=== PATIENT | male | born 1965 | race Caucasian/White ===

== ENCOUNTER 2023-06-02 18:47 | Emergency (ER) | payer OTHER, SELFPAY ==
[2023-06-02] VITALS (32 sets, daily range): BP systolic 115–137; BP diastolic 60–87; PULSE 63–134; RESP 7–31; TEMP 36.4; O2SAT 97–100; BMI 42.6
--- NOTE | 2023-06-02 18:56 | ECG_ITS ---
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
--- NOTE | 2023-06-02 18:56 | XR_ITS ---
The [address] [address] Patient Name: CYN EVANS MRN: [id number] date: 1965 Sex: M Assigned Patient Location: ER Current Patient Location: ER Accession/Order Number: [id number] Exam Date: 06/02/2023 19:16 Report Date: 06/02/2023 19:37 At the request of: TWNA HUTTON Procedure: XR chest 2V EXAM: XR chest 2V HISTORY: syncope COMPARISON: None. TECHNIQUE: Upright PA and lateral chest x-ray FINDINGS: The heart is not enlarged and the vasculature is not distended. No acute infiltrate, effusion or pneumothorax is identified. Degenerative changes are seen in the spine. XR/XR chest 2V IMPRESSION: No acute infiltrate or evidence of cardiac decompensation. Direct comparison with a previous study would be helpful in determining the chronicity of these findings. Electronically authenticated by: KENNEY BALL Date: 06/02/2023 19:37
--- NOTE | 2023-06-02 19:48 | ED.SYNCOPE1 ---
HPI - Syncope General Chief Complaint: Syncope Stated Complaint: Syncope Time Seen by Provider: 06/02/23 18:55 Source: patient Mode of arrival: ambulance History of Present Illness HPI narrative: patient at work. not exerting himself. Became sweating and clammy followed by nausea. Sat down on the floor as he was light headed and passed out. No reported seizure activity . Denies any preceding chest pain or abdominal pain. States he felt well before onset of symptoms. History of HTN that is controlled. Mild left sided headache on and off. Ears feels plugged. He is hard of hearing. did not bring his hearing aids MD complaint: Reports loss of consciousness Related Data Allergies Allergy/AdvReac Type Severity Reaction Status Date / Time No Known Drug Allergies Allergy Verified 06/02/23 18:54 Review of Systems ROS Status of ROS 10 or more systems reviewed and unremarkable except as noted in history and below Exam Constitutional Vital Signs, click to edit/add: Last Vital Signs Temp 97.5 F L 06/02/23 18:55 Pulse 71 06/02/23 22:50 Resp 17 06/02/23 22:50 BP 132/78 06/02/23 22:31 Pulse Ox 98 06/02/23 22:50 O2 Del Method Room Air 06/02/23 18:55 Common normals: no apparent distress, oriented x3, no limitations, healthy appearing, alert and well nourished [facility] Common normals: normocephalic and head/scalp atraumatic Eye Common normals: PERRL, EOMs intact bilaterally and conjunctivae normal Respiratory Common normals: normal respiratory effort, no retractions, no use of accessory muscles and clear to auscultation bilaterally Cardio Common normals: regular rate, regular rhythm, S1 normal heart sound and S2 normal heart sound GI Common normals: Normal to inspection, nondistended, normoactive bowel sounds present, soft to palpation and non-tender Extremity Common normals: normal to inspection and full ROM Neuro Common normals: oriented x3, CN's II-XII intact bilaterally, moves all extremities and no focal motor deficits Psych Appearance: grossly normal Course Vital Signs Vital signs: Vital Signs Pulse Rate 114 H 06/02/23 18:51 Temperature 97.5 F L 06/02/23 18:55 Pulse Rate 71 06/02/23 22:50 Respiratory Rate 17 06/02/23 22:50 Blood Pressure 132/78 06/02/23 22:31 Pulse Oximetry 98 06/02/23 22:50 Oxygen Delivery Method Room Air 06/02/23 18:55 MDM - Syncope MDM Narrative Medical decision making narrative: patient clinically presents with vaso vagal syncope. Prior to passing out he was sweaty and nauseated. He then sat down passed out. workup in the department neg including serial troponin and neg. d-dimer. Patient discharged home asymptomatic to follow up with his doctor Lab Data Labs: Lab Results 06/02/23 06/02/23 Range/Units 20:06 22:18 WBC 15.3 H (4.0-11.0) 10^3/uL RBC 5.36 (4.70-6.10) 10^6/uL Hgb 15.6 (14.0-18.0) g/dL Hct 46.7 (42.0-54.0) % MCV 87.1 (80.0-94.0) fL MCH 29.1 (25.9-34.0) pg MCHC 33.4 (29.9-35.2) g/dL RDW 13.4 (11.0-15.0) % Plt Count 257 (150-450) 10^3/uL MPV 8.9 L (9.5-13.5) fL Neut % (Auto) 84.9 H (43.0-75.0) % Lymph % (Auto) 7.2 L (20.5-60.0) % [place] % (Auto) 6.1 (1.7-12.0) % Eos % (Auto) 0.8 L (0.9-7.0) % Baso % (Auto) 0.4 (0.2-2.0) % Neut # (Auto) 13.0 H (1.4-6.5) 10^3/uL Lymph # (Auto) 1.1 L (1.2-3.8) 10^3/uL [place] # (Auto) 0.9 H (0.3-0.8) 10^3/uL Eos # (Auto) 0.1 (0.0-0.7) 10^3/uL Baso # (Auto) 0.1 (0.0-0.1) 10^3/uL Abs Immat Gran (auto) 0.09 H (0.00-0.03) 10^3/uL Imm/Tot Granulo (auto) 0.6 H (0.0-0.5) % D-Dimer 0.46 (<=0.59) mg/L FEU Sodium 138 (136-145) mmol/L Potassium 3.0 L (3.5-5.1) mmol/L Chloride 101 (98-107) mmol/L Carbon Dioxide 28.5 (21.0-32.0) mmol/L Anion Gap 11.5 BUN 15.0 (7.0-18.0) mg/dL Creatinine 1.09 (0.70-1.30) mg/dL Est GFR ( Amer) >60 (>=60) Est GFR (Non-Af Amer) >60 (>=60) BUN/Creatinine Ratio 13.8 Glucose 163 H (74-106) mg/dL Calcium 9.4 (8.5-10.1) mg/dL Total Bilirubin 0.5 (0.2-1.0) mg/dL AST 19 (15-37) U/L ALT 37 (16-63) U/L Alkaline Phosphatase 104 (46-116) U/L Troponin I High Sens 39.9 26.5 (4.0-76.1) pg/mL NT-Pro-B Natriuret Pep 190.0 (<=900.0) pg/mL Total Protein 7.6 (6.4-8.2) g/dL Albumin 3.7 (3.4-5.0) g/dL Globulin 3.9 g/dL Albumin/Globulin Ratio 0.9 Discharge Plan Discharge Chief Complaint: Syncope Clinical Impression: Vasovagal syncope Patient Disposition: Home, Self-Care Instructions: Syncope (ED) Additional Instructions: follow up with your doctor in a couple of days for recheck Stand Alone Forms: Portal Instructions Referrals: Physician,Non-Staff, MD [Primary Care Provider] - 1 week Discharge Date/Time: 06/03/23 00:22
[2023-06-02] MEDS: 0.9 % SODIUM CHLORIDE 1,000 ML 1000 ML IV (20:06)
[2023-06-02 20:18] LABS: Basophils Absolute Auto 0.1 10^3/uL (0.0-0.1); Basophils Percent Auto 0.4 % (0.2-2.0); Eosinophils Absolute Auto 0.1 10^3/uL (0.0-0.7); Eosinophils Percent Auto 0.8 % (0.9-7.0); Hematocrit 46.7 % (42.0-54.0); Hemoglobin 15.6 g/dL (14.0-18.0); Immature Granulocytes Abs Auto 0.09 10^3/uL (0.00-0.03); Immature Granulocytes Pct Auto 0.6 % (0.0-0.5); Lymphocytes Absolute Auto 1.1 10^3/uL (1.2-3.8); Lymphocytes Percent Auto 7.2 % (20.5-60.0); Mean Corpuscular HGB Conc 33.4 g/dL (29.9-35.2); Mean Corpuscular Hemoglobin 29.1 pg (25.9-34.0); Mean Corpuscular Volume 87.1 fL (80.0-94.0); Mean Platelet Volume 8.9 fL (9.5-13.5); Monocytes Absolute Auto 0.9 10^3/uL (0.3-0.8); Monocytes Percent Auto 6.1 % (1.7-12.0); Neutrophils Percent Auto 84.9 % (43.0-75.0); Platelet Count 257 10^3/uL (150-450); Red Blood Count 5.36 10^6/uL (4.70-6.10); Red Cell Distribution Width 13.4 % (11.0-15.0); White Blood Count 15.3 10^3/uL (4.0-11.0)
[2023-06-02 20:32] LABS: D Dimer 0.46 mg/L FEU (<=0.59)
[2023-06-02 20:38] LABS: Alanine Aminotransferase 37 U/L (16-63); Albumin Globulin Ratio 0.9; Albumin Level 3.7 g/dL (3.4-5.0); Alkaline Phosphatase 104 U/L (46-116); Anion Gap 11.5; Aspartate Amino Transferase 19 U/L (15-37); BUN Creatinine Ratio 13.8; Bilirubin Total 0.5 mg/dL (0.2-1.0); Calcium 9.4 mg/dL (8.5-10.1); Carbon Dioxide 28.5 mmol/L (21.0-32.0); Chloride 101 mmol/L (98-107); Estimated GFR (African America >60 (>=60); Estimated GFR (Non-African Ame >60 (>=60); Globulin 3.9 g/dL; Glucose 163 mg/dL (74-106); Sodium 138 mmol/L (136-145); Total Protein 7.6 g/dL (6.4-8.2); Troponin I High Sensitivity 39.9 pg/mL (4.0-76.1)
[2023-06-02] MEDS: POTASSIUM CHLORIDE 10 MEQ ER TABLET 40 MEQ PO (22:13)
[2023-06-02 23:54] LABS: Troponin I High Sensitivity 26.5 pg/mL (4.0-76.1)
== END 2023-06-03 00:22 | disposition home or self-care (01) ==
PROVIDERS: Emergency Medicine; Emergency Provider Internal Medicine
DX: R55 Syncope and collapse (principal); H91.90 Unspecified hearing loss, unspecified ear
CPT/HCPCS: 36415; 71046; 80053; 83880; 84484; 85025; 85378; 93005; 99285